=== PATIENT | male | born 1960 | race Caucasian/White ===

== ENCOUNTER 2017-11-18 16:17 | Inpatient (IN) | payer OTHER ==
[~2017-11-18] VITALS: Ht 185.4 cm; Wt 113.4 kg
[2017-11-18] MEDS ORDERED: ACETAMINOPHEN 325 MG TABLET PO PRN (19:00)
[2017-11-18] MEDS ORDERED: ONDANSETRON ODT 4 MG TAB.RAPDIS SL PRN (19:00)
[2017-11-18] MEDS ORDERED: THIAMINE HCL 200 MG/2 ML VIAL IM ONE (19:00)
[2017-11-18] MEDS ORDERED: LORAZEPAM 2 MG/1 ML VIAL IM PRN (19:00)
[2017-11-18] MEDS ORDERED: MAG HYDROX/AL HYDROX/SIMETH 30 ML LIQUID UDC PO PRN (19:00)
[2017-11-18] MEDS ORDERED: ONDANSETRON 4 MG/2 ML VIAL IM PRN (19:00)
[2017-11-18] MEDS ORDERED: CLONIDINE HCL 0.1 MG TABLET PO PRN (19:00)
[2017-11-18] MEDS ORDERED: LOPERAMIDE HCL 2 MG CAPSULE PO PRN ×2 (19:00)
[2017-11-18] MEDS ORDERED: diphenhydrAMINE 50 MG CAPSULE PO PRN (19:00)
[2017-11-18] MEDS ORDERED: MAGNESIUM HYDROXIDE 30 ML LIQUID UDC PO PRN (19:00)
[2017-11-18] MEDS ORDERED: MIRALAX 17 GM POWD.PACK PO PRN (19:00)
[2017-11-18] MEDS ORDERED: LORAZEPAM 1 MG TABLET PO PRN ×2 (19:00)
--- NOTE | 2017-11-18 19:50 | NUR ---
Pre admission Note Px is a 56 y/o male, seen at intake, A&Ox4, no SOB with moderate to severe anxiety noted at this time. Discussed with patient the admission policies of the unit. Patient is coherent and able to respond to questions appropriately. Px is ambulatory with steady gait. Vital signs taken and as follows: BP: 195/125 on Left arm and 168/106 on Right arm, P: 107, R: 19, O2: 95%, T: 97.5, PA: 0. Px verbalized understanding of instructions and teachings regarding disposal of narcotic and other controlled home medications, unit protocols such as taking of vital signs Q4H and handling and disposal of contraband. We'll continue with admission upon px's arrival on the unit.
[2017-11-18 20:12] LABS: *AMPHETAMINE, URINE NEGATIVE (NEGATIVE); *BARBITURATE, URINE NEGATIVE (NEGATIVE); *CANNABINOID, URINE NEGATIVE (NEGATIVE); *COCCAINE, URINE NEGATIVE (NEGATIVE); *OPIATE, URINE NEGATIVE (NEGATIVE); *PHENCYCLIDINE SCREEN,URINE NEGATIVE (NEGATIVE)
[2017-11-18] MEDS ORDERED: METO25TA6 PO (20:20)
[2017-11-18] MEDS ORDERED: AMLO10TA4 PO (20:20)
[2017-11-18] MEDS ORDERED: MAGN400T6 PO (20:20)
--- NOTE | 2017-11-18 20:30 | NUR ---
Admission Note Maryjo is a 56 y/o male admitted on 11/18/17 for ETOH dependence, arrived on the unit at 2011. Px able to provide UDS during intake. Skin and body check completed. Px is full code, NKA, regular diet and on fall/seizure precautions. Px reported seizure history but can't recall when. Reports PMHx of anxiety, depression, HTN, A fib., arthritis, fractures, left eye cataract and surgeries on throat and right elbow. Maryjo refuses flu/pneumonia vaccine. Vitals upon assessment are BP: 173/111, P: 101, R: 18, O2: 95%, T: 97.9, PA: 0/10. Weight 250, height 61. Maryjo is currently intoxicated and reports his last intake was vodka just prior to arrival. Maryjo reports he does not have a PCP, smokes approximately to 1 pack cigarettes daily, denies being hospitalized or in senior care within past 30 days. Px brought home medication to reconcile. Maryjo is able to understand and respond to all questions pertaining to his hospitalization. Substance Abuse History is as follows: 1. Vodka, 1 Liter a day for 2 years, last intake 11/18/2017 1 pint. Px has been drinking since grade school Pxs longest sober period was 3 days last 2 weeks ago. Px reports this is his first time in treatment/detox. Mother has PMHx of cancer. Upon assessment, maryjo is A&Ox4 and presents with high anxiety, flushed skin, stomach cramps, and mild nausea. Respirations are even and unlabored. Denies SOB or chest pain. Bowel sounds active x 4, abdomen soft. PERRLA. Skin intact, no open wounds noted. Px denies SI/HI at this time. Px has no history of suicidal thoughts. Educational information provided and left at bedside. Px oriented to room and encouraged to notify staff with any concerns. Safety measures in place. Call light within reach, side rails up x 2, bed locked and in low position. We'll continue to monitor.
[2017-11-18] MEDS ORDERED: NICOTINE POLACRILEX 4 MG GUM-PK OF TEN BC PRN (20:45)
[2017-11-18] MEDS ORDERED: ACET500C4 PO (20:48)
[2017-11-18] MEDS ORDERED: ACET-1951 PO (20:52)
--- NOTE | 2017-11-18 20:58 | NUR ---
1x dose meds Vit B1 100mg given IM, Apresoline 50 mg/tab, 1 tab given PO and Ativan 1mg/tab, 2 tabs given PO as 1x dose. We'll continue to monitor.
[2017-11-18] MEDS: METOPROLOL TARTRATE 25 MG TABLET PO SCH (20:59)
[2017-11-18] MEDS ORDERED: LORAZEPAM 1 MG TABLET PO SCH (21:00)
[2017-11-18] MEDS ORDERED: hydrALAZINE HCL 50 MG TABLET PO ONE (21:00)
[2017-11-18] MEDS ORDERED: THIAMINE HCL 200 MG/2 ML VIAL ONE (21:06)
[2017-11-18] MEDS ORDERED: LORAZEPAM 1 MG TABLET ONE ×2 (21:06→23:39)
[2017-11-18] MEDS ORDERED: METOPROLOL TARTRATE 25 MG TABLET ONE (21:06)
[2017-11-18] MEDS ORDERED: hydrALAZINE HCL 50 MG TABLET ONE (21:06)
[2017-11-18] MEDS: DICYCLOMINE HCL 20 MG TABLET PO PRN (21:14)
[2017-11-18] MEDS ORDERED: ONDANSETRON ODT 4 MG TAB.RAPDIS ONE (21:23)
[2017-11-18] MEDS ORDERED: DICYCLOMINE HCL 20 MG TABLET ONE (21:30)
--- NOTE | 2017-11-18 23:23 | NUR ---
PRN meds Px complained of nausea, stomach cramps, and severe anxiety. At 2106, Zofran 4 mg/tab, 1 tab given SL. At 2113, Bentyl 20 mg/tab, 1 tab given PO. At 2322, Ativan 1 mg/tab, 2 tabs given PO for CIWA 13 and Motrin 400 mg/tab, 1 tab given PO as PRN meds. We'll continue to monitor.
[2017-11-18] MEDS: IBUPROFEN 400 MG TABLET PO PRN (23:24)
[2017-11-18] MEDS ORDERED: IBUPROFEN 400 MG TABLET ONE (23:38)
[2017-11-19] VITALS: BP 150/83
[2017-11-19 02:13] LABS: ETHANOL < 3 MG/DL (0-0)
[2017-11-19 02:16] LABS: ALANINE AMINOTRANSFERASE 64 U/L (16-63); ALKALINE PHOSPHATASE 67 U/L (50-136); AMYLASE 29 U/L (25-115); ASPARTATE AMINOTRANSFERASE 52 U/L (15-37); BILIRUBIN,TOTAL 1.1 mg/dL (0.2-1.0); CARBON DIOXIDE 24 mmol/L (21-32); CHLORIDE 102 mmol/L (98-107); CREATININE 1.4 mg/dL (0.6-1.3); GLUCOSE 101 mg/dL (74-106); MAGNESIUM 1.9 mg/dL (1.8-2.4); TOTAL PROTEIN, SERUM 7.9 g/dL (6.4-8.2); UREA NITROGEN, BLOOD 26 mg/dL (7-18)
[2017-11-19 02:58] LABS: BASOPHILS # (AUTO) 0.1 K/uL (0.0-8.0); BASOPHILS % (AUTO) 1.1 % (0.0-2.0); EOSINOPHILS # (AUTO) 0.2 K/uL (0.0-0.7); EOSINOPHILS % (AUTO) 1.8 % (0.0-7.0); HEMATOCRIT 51.6 % (36.7-47.1); HEMOGLOBIN 17.7 g/dL (12.5-16.3); LYMPHOCYTES # (AUTO) 2.3 K/uL (20.0-40.0); LYMPHOCYTES % (AUTO) 24.7 % (20.5-51.5); MEAN CORPUSCULAR HEMOGLOBIN 32.1 uug (23.8-33.4); MEAN CORPUSCULAR HGB CONC 34 g/dL (32.5-36.3); MEAN CORPUSCULAR VOLUME 93.6 fL (73.0-96.2); MONOCYTES # (AUTO) 1.2 K/uL (2.0-10.0); MONOCYTES % (AUTO) 12.8 % (0.0-11.0); NEUTROPHILS # (AUTO) 5.7 K/uL (1.8-8.9); NEUTROPHILS % (AUTO) 59.6 % (38.5-71.5); PLATELET COUNT (AUTO) 177 K/uL (152-348); RED BLOOD CELL COUNT(AUTO) 5.51 MIL/uL (4.06-5.63); WHITE BLOOD COUNT (AUTO) 9.5 K/uL (3.6-10.2)
[2017-11-19 04:00] VITALS: BP 148/80
--- NOTE | 2017-11-19 04:00 | NUR ---
CIWA deferred CIWA deferred due to px is asleep, to assess if the px awake per doctor's order. We'll continue to monitor.
--- NOTE | 2017-11-19 07:14 | NUR ---
End of Shift Note 56 y/o male admitted on 11/18/17 for ETOH dependence. Px is full code, NKA, regular diet and on fall/seizure precautions. Px reported seizure history but cant recall when. Reports PMHx of anxiety, depression, HTN, A fib., arthritis, fractures, left eye cataract and surgeries on throat and right elbow. During the shift, px is A&Ox4 and presents with anxiety, flushed skin, stomach cramps, and mild nausea. Respirations are even and unlabored. At 2106, Zofran 4 mg/tab, 1 tab given SL. At 2113, Bentyl 20 mg/tab, 1 tab given PO. At 2322, Ativan 1 mg/tab, 2 tabs given PO for CIWA 13 and Motrin 400 mg/tab, 1 tab given PO as PRN meds. Oral intake of 600 ml, voided 2x, No BM. Slept for 4 hours. Safety measures in place. Call light within reach, side rails up x 2, bed locked and in low position. We'll continue to monitor.
--- NOTE | 2017-11-19 07:50 | NUR ---
START OF SHIFT NOTE Received report from night nurse, 57 year old male admitted for ETOH dependence. Patient to start on 5 days Ativan taper. Per endorsement pt was given x1 dose of Ativan, PRN Ativan , Motrin effective per night nurse, last CIWA score was 9, slept for 4 hours. Patient received in bed awake, alert and oriented x4, educated regarding plan of care for the day and medication regimen. Safety measures in place. Will cont to monitor.
[2017-11-19 08:00] VITALS: BP 176/103
[2017-11-19] MEDS: THIAMINE HCL 100 MG TABLET PO SCH (08:34)
[2017-11-19] MEDS: LORAZEPAM 1 MG TABLET PO SCH ×4 (08:34→21:58)
[2017-11-19] MEDS: MULTIVITAMINS,THERAPEUTIC TABLET PO SCH (08:34)
[2017-11-19] MEDS: FOLIC ACID 1 MG TABLET PO SCH (08:34)
[2017-11-19] MEDS: AMLODIPINE 10 MG TABLET PO SCH (08:35)
[2017-11-19] MEDS: METOPROLOL TARTRATE 25 MG TABLET PO SCH (08:35)
[2017-11-19] MEDS: IBUPROFEN 400 MG TABLET PO PRN (08:40)
[2017-11-19] MEDS: DICYCLOMINE HCL 20 MG TABLET PO PRN (08:40)
--- NOTE | 2017-11-19 08:40 | NUR ---
PRN.0 0 PRN MOTRIN/BENTYL Patient c/o of stomach cramps, bilateral lower extremities pain 5/10. PRN Motrin 400mg PO, Bentyl 20mg PO as ordered. Will cont to monitor and reassess. Addendum: 11/19/17 at 1110 by ANASTACIO WILLIAMSON LVN PRN MOTRIN/BENTYL Patient c/o of stomach cramps, bilateral lower extremities pain 5/10. PRN Motrin 400mg PO, Bentyl 20mg PO as ordered. Will cont to monitor and reassess.
[2017-11-19] MEDS ORDERED: TUBERCULIN,PURIF.PROT.DERIV. 5 TU/0.1 ML TEST ID ONE (09:00)
--- NOTE | 2017-11-19 09:40 | NUR ---
MOTRIN/BENTYL REASSESSMENT Patient reported medications was effective pain lower to 1/10 and stomach cramps subside.
[2017-11-19] MEDS: hydrALAZINE HCL 50 MG TABLET PO PRN (09:42)
--- NOTE | 2017-11-19 09:42 | NUR ---
PRN HYDRALAZINE Blood pressure noted 155/87, HR-98. PRN Hydralazine 50mg PO given as ordered. Will cont to monitor and reassess.
--- NOTE | 2017-11-19 10:42 | NUR ---
HYDRALAZINE REASSESSMENT Blood pressure noted 145/78, HR-80, medication effective.
--- NOTE | 2017-11-19 11:20 | NUR ---
Patient accidently tripped, but did not hurt him self no injury noted skin intact. Asked patient if he fell pt stated he just tripped over. Patient denies any dizziness or headache. notified.
[2017-11-19] MEDS ORDERED: LORAZEPAM 1 MG TABLET PO ONE (11:45)
--- NOTE | 2017-11-19 11:52 | NUR ---
X1 DOSE OF ATIVAN Patient was seen by MD with new one time order of Ativan 2mg PO. Medication administered as ordered. Will cont to monitor.
[2017-11-19 12:00] VITALS: BP 146/87
[2017-11-19] MEDS: DICYCLOMINE HCL 20 MG TABLET PO SCH ×2 (14:00→21:58)
[2017-11-19 16:00] VITALS: BP 140/88
[2017-11-19] MEDS: CARVEDILOL 12.5 MG TABLET PO SCH (17:30)
--- NOTE | 2017-11-19 19:11 | NUR ---
END OF SHIFT NOTE Patient cont with Ativan taper tolerating well. Patient received x1 dose of Ativan, PRN Bentyl, Motrin, Hydralazine noted to be effective. Vital signs remained WNL. Encourage Po fluids as tolerated. Last CIWA score was 5 @1600. Skin intact warm and dry to touch. Encourage patient to attend groups and activities to learn new coping skills. All needs attended, Safety measures in place. Patient endorsed to night nurse in stable condition.
--- NOTE | 2017-11-19 19:30 | NUR ---
START OF SHIFT Pt is a 57 y/o male admitted for ETOH dependency.NKA,full code status and regular diet.Patient continues with Ativan taper and is tolerating well. Last CIWA score was 5. Pt received sleeping in room,breathing is even and non labored,all safety measures in place per hospital policy.Will continue to monitor.
[2017-11-19 20:00] VITALS: BP 113/71
[2017-11-19] MEDS: GABAPENTIN 300 MG CAPSULE PO SCH (21:58)
[2017-11-19] MEDS: QUETIAPINE FUMARATE 25 MG TABLET PO SCH (22:06)
[2017-11-19] MEDS ORDERED: QUETIAPINE FUMARATE 25 MG TABLET ONE (22:20)
[2017-11-19 22:30] LABS: THYROID STIMULATING HORMONE 2.133 mIU/mL (0.358-3.740)
[2017-11-20] VITALS (7 sets, daily range): BP systolic 104–163; BP diastolic 69–103
--- NOTE | 2017-11-20 | NUR ---
CIWA DEFERRED DUE TO SLEEP.PT IS IN DEEP SLEEP.V/S ARE STABLE.BREATHING IS EVEN AND NON LABORED.WILL CONTINUE TO MONITOR.
[2017-11-20] MEDS: hydrALAZINE HCL 50 MG TABLET PO PRN (06:03)
--- NOTE | 2017-11-20 06:05 | NUR ---
PRN HYDRALAZINE GIVEN ORDERED OR B/P 0F 150/100.WILL MONITOR FOR EFFECTIVENESS.
--- NOTE | 2017-11-20 07:00 | NUR ---
B/P=140/74.HR=88.
--- NOTE | 2017-11-20 07:14 | NUR ---
END OF SHIFT Pt is a 57 y/o male admitted for ETOH dependency.NKA,full code status and regular diet.Pt appears confused at times, stated "I have been talking to myself",also stated that some has been sitting in his room,appears to be having some visual hallucinations;woke up this morning asking for dinner.Pt oriented to reality.PRN Hydralizine given for elevated B/P with good effect.Pt slept 10 hrs,fluid intake was 355 mls,voided x 3.PO fliud intake encouraged. Patient continues with Ativan taper and is tolerating well. Last CIWA score was 5. Pt was received sleeping in room and slept most of night ,breathing is even and non labored; all safety measures in place per hospital policy.Will continue to monitor.
--- NOTE | 2017-11-20 07:30 | NUR ---
Pt was placed on 1:1 for visual and auditory hallucinations
--- NOTE | 2017-11-20 07:30 | NUR ---
start of shift note: pt is in bed, room is very disorganized, pt is disoriented and rambling. pt is admitted to [facility] for ETOH withdrawal/dependence. will place a call to MD regarding Pt's status for any further orders. will monitor pt for any A/R to medications.
[2017-11-20] MEDS: CARVEDILOL 12.5 MG TABLET PO SCH ×2 (07:34→17:43)
[2017-11-20] MEDS: FOLIC ACID 1 MG TABLET PO SCH (08:17)
[2017-11-20] MEDS: THIAMINE HCL 100 MG TABLET PO SCH (08:17)
[2017-11-20] MEDS: GABAPENTIN 300 MG CAPSULE PO SCH ×2 (08:17→20:59)
[2017-11-20] MEDS: FAMOTIDINE 20 MG TABLET PO SCH (08:17)
[2017-11-20] MEDS: MULTIVITAMINS,THERAPEUTIC TABLET PO SCH (08:17)
[2017-11-20] MEDS: DICYCLOMINE HCL 20 MG TABLET PO SCH ×3 (08:18→20:59)
[2017-11-20] MEDS: AMLODIPINE 10 MG TABLET PO SCH (08:18)
[2017-11-20] MEDS: LORAZEPAM 1 MG TABLET PO SCH ×3 (08:18→21:00)
[2017-11-20] MEDS: QUETIAPINE FUMARATE 25 MG TABLET PO SCH ×2 (08:18→17:00)
[2017-11-20 10:16] LABS: BILIRUBIN,DIRECT 0.1 mg/dL (0.0-0.2); BILIRUBIN,TOTAL 0.5 mg/dL (0.2-1.0); CREATININE 1.1 mg/dL (0.6-1.3); MAGNESIUM 2.1 mg/dL (1.8-2.4); POTASSIUM 4.5 mmol/L (3.5-5.1); TOTAL PROTEIN, SERUM 7.1 g/dL (6.4-8.2)
[2017-11-20] MEDS ORDERED: LORAZEPAM 1 MG TABLET PO PRN ×2 (18:00)
--- NOTE | 2017-11-20 18:20 | NUR ---
prn ADMINISTRATION: ativan 1 mg was administered for pt's ciwa of 10. pt is very disoriented un aware of surroundings, overnight caregiver nurse to re-assess
--- NOTE | 2017-11-20 18:52 | NUR ---
end of shift note: [facility]. pt is on a 1:1 for disorientation and unsteady gait, pt's last ciwa 10. pt received 1 mg at 1820. pt tolerating taper medications well, pt's b/p is stabilized. pt is in bed sleeping at this time. pt tolerated PO intake well. will endorse pt to night shift supervisor nurse.
--- NOTE | 2017-11-20 19:30 | NUR ---
START OF SHIFT Pt is a 57 y/o male admitted for ETOH dependency.NKA,full code status and regular diet.Patient continues with Ativan taper and is tolerating well. Last CIWA score was 10.Pt was given Ativan 1 mg PO. Pt received sleeping in room,unable to assess for CIWA at this time due to Pt being asleep; breathing is even and non labored,all safety measures in place per hospital policy; 1:1 staff is at bed side.Pt continues to remain on close observation for safety.Will continue to monitor.
[2017-11-20] MEDS: CARVEDILOL 25 MG TABLET PO SCH (20:58)
[2017-11-21] VITALS: BP 113/62
--- NOTE | 2017-11-21 | NUR ---
CIWA DEFERRED/O2 ADMINISTRATION PT IS IN DEEP SLEEP,CIWA DEFERRED DUE TO BEING SLEEP.O2 SAT IS UNSTABLE AND KEEPS FLUCTUATING FROM 88% TO 93%.MD NOTIFIED.PT PLACED ON 2-3 LITRES OF OXYGEN VIA NASAL CANULA TO MAINTAIN SATURATION GREATER THAN 94%.WILL CONTINUE TO MONITOR.
[2017-11-21 04:00] VITALS: BP 126/75
--- NOTE | 2017-11-21 04:00 | NUR ---
CIWA DEFERRED/O2 SAT. PT IS IN DEEP SLEEP,CIWA DEFERRED DUE TO BEING ASLEEP.O2 SATURATING at 95%.PT CONTINUES ON 2-3 LITERS OF OXYGEN VIA NASAL CANULA TO MAINTAIN SATURATION GREATER THAN 94%.BREATHING IS EVEN AND NON LABORED,SITTER AT BEDSIDE.WILL CONTINUE TO MONITOR FOR SAFETY.
--- NOTE | 2017-11-21 06:41 | NUR ---
END OF SHIFT Pt is a 57 y/o male admitted for ETOH dependency.NKA,full code status and regular diet.Patient continues with Ativan taper and is tolerating well. Last CIWA score was 9, due to pt being confused.Pt continues to be on close observation for safety.Pt is med compliant.No PRN meds given; pt slept 10- hrs,fluid intake was 991 mls,voided x 0.Pt continues to be on 2-3 litres of oxygen via nasal canula and is tolerating well;breathing is even and non labored,all safety measures in place per hospital policy; 1:1 staff is at bed side.Pt continues to remain on close observation for safety.Will continue to monitor.
--- NOTE | 2017-11-21 07:35 | NUR ---
START OF SHIFT NOTE Received report from night nurse, 57 year old male admitted for ETOH dependence. Patient cont start on 5 days Ativan taper. Patient currently on 1:1 for safety. Per endorsement pt did not receive any PRN, last CIWA score was 9, slept for 10 hours. Patient received in bed awake, alert and oriented x4, educated regarding plan of care for the day and medication regimen. Safety measures in place. Will cont to monitor.
[2017-11-21 08:00] VITALS: BP 136/84
[2017-11-21 08:06] LABS: HEPATITIS B SURFACE AG Negative (Negative)
[2017-11-21] MEDS: THIAMINE HCL 100 MG TABLET PO SCH (08:27)
[2017-11-21] MEDS: GABAPENTIN 300 MG CAPSULE PO SCH ×3 (08:27→20:43)
[2017-11-21] MEDS: MULTIVITAMINS,THERAPEUTIC TABLET PO SCH (08:27)
[2017-11-21] MEDS: LOSARTAN POTASSIUM 50 MG TABLET PO SCH (08:28)
[2017-11-21] MEDS: FOLIC ACID 1 MG TABLET PO SCH (08:28)
[2017-11-21] MEDS: DICYCLOMINE HCL 20 MG TABLET PO SCH ×3 (08:28→20:43)
[2017-11-21] MEDS: FAMOTIDINE 20 MG TABLET PO SCH (08:28)
[2017-11-21] MEDS: CARVEDILOL 25 MG TABLET PO SCH ×2 (08:28→20:43)
[2017-11-21] MEDS: AMLODIPINE 10 MG TABLET PO SCH (08:29)
[2017-11-21] MEDS: QUETIAPINE FUMARATE 25 MG TABLET PO SCH ×3 (08:29→16:31)
[2017-11-21] MEDS ORDERED: LORAZEPAM 1 MG TABLET PO SCH ×2 (09:00→21:00)
--- NOTE | 2017-11-21 09:49 | NUR ---
Therapist prompted client about group times. Client stated he wants to rest today.
[2017-11-21 12:00] VITALS: BP 132/79
[2017-11-21] MEDS: LORAZEPAM 1 MG TABLET PO SCH ×2 (12:11→16:31)
[2017-11-21 16:00] VITALS: BP 125/65
--- NOTE | 2017-11-21 19:06 | NUR ---
END OF SHIFT NOTE Patient cont with 5 days Ativan taper tolerating well. During shift patient did not receive any PRN. Patient cont on 1:1 for safety. Vital signs remained WNL. Encourage Po fluids as tolerated. Last CIWA score was 5 @1600. Skin intact warm and dry to touch. Safety measures in place. Patient endorsed to night nurse in stable condition.
--- NOTE | 2017-11-21 19:11 | NUR ---
Start of shift note Received report from day shift nurse. Pt is a 57 yo male, A+Ox4, presenting to [facility] for ETOH dependence. Pt has NKA, is on Full code status, and on Regular diet. Pt is on Fall and Seizure precautions. Pt is on 1:1 sitter for safety. Pt has HX of Anxiety, Depression, HTN, Afib, Arthritis, Left eye cataract, back injury, Right elbow FX, and Syncope. Pt is on 5 day Ativan taper, tolerated well. No s/s of distress noted at this time. Respirations even and unlabored. Will continue to monitor.
[2017-11-21 20:10] VITALS: BP 140/85
[2017-11-22 00:21] VITALS: BP 104/67
[2017-11-22 04:34] VITALS: BP 110/72
--- NOTE | 2017-11-22 06:58 | NUR ---
End of shift note Pt is a 57 yo male, A+Ox4, presenting to [facility] for ETOH dependence. Pt has NKA, is on Full code status, and on Regular diet. Pt is on Fall and Seizure precautions. Pt is on 1:1 sitter for safety. Pt has HX of Anxiety, Depression, HTN, Afib, Arthritis, Left eye cataract, back injury, Right elbow FX, and Syncope. Pt is on 5 day Ativan taper, tolerated well. No PRN's given throughout shift. Pt slept for a total of 10 HRS. Last CIWA: 3 @0400. No s/s of distress noted at this time. Respirations even and unlabored. Will endorse to day shift nurse.
--- NOTE | 2017-11-22 07:24 | NUR ---
START OF SHIFT NOTE Received report from night nurse, 57 year old male admitted for ETOH dependence. Patient cont on 5 days Ativan taper tolerating well. Patient currently on 1:1 for safety. Per endorsement pt did not receive any PRN, last CIWA score was 3, slept for 10 hours. Patient received in bed awake, alert and oriented x4, educated regarding plan of care for the day and medication regimen. Safety measures in place. Will cont to monitor.
[2017-11-22 08:00] VITALS: BP 152/87
[2017-11-22] MEDS: LOSARTAN POTASSIUM 50 MG TABLET PO SCH (08:17)
[2017-11-22] MEDS: MULTIVITAMINS,THERAPEUTIC TABLET PO SCH (08:17)
[2017-11-22] MEDS: FAMOTIDINE 20 MG TABLET PO SCH (08:17)
[2017-11-22] MEDS: GABAPENTIN 300 MG CAPSULE PO SCH ×2 (08:17→14:02)
[2017-11-22] MEDS: AMLODIPINE 10 MG TABLET PO SCH (08:18)
[2017-11-22] MEDS: THIAMINE HCL 100 MG TABLET PO SCH (08:18)
[2017-11-22] MEDS: DICYCLOMINE HCL 20 MG TABLET PO SCH ×3 (08:18→21:47)
[2017-11-22] MEDS: QUETIAPINE FUMARATE 25 MG TABLET PO SCH ×3 (08:18→16:50)
[2017-11-22] MEDS: FOLIC ACID 1 MG TABLET PO SCH (08:18)
[2017-11-22] MEDS: CARVEDILOL 25 MG TABLET PO SCH ×2 (08:19→21:47)
[2017-11-22] MEDS: IBUPROFEN 400 MG TABLET PO PRN (08:23)
--- NOTE | 2017-11-22 08:23 | NUR ---
PRN MOTRIN Patient c/o of lower extremities pain 5/10. PRN Motrin 400mg PO given as ordered. Will cont to monitor and reassess.
[2017-11-22] MEDS ORDERED: LORAZEPAM 1 MG TABLET PO SCH ×3 (09:00→21:00)
--- NOTE | 2017-11-22 09:23 | NUR ---
MOTRIN REASSESSMENT Patient reported medication was effective pain lower to 2/10.
[2017-11-22 12:00] VITALS: BP 133/77
[2017-11-22] MEDS ORDERED: KETOROLAC TROMETHAMINE 30 MG INJ IM PRN (12:30)
--- NOTE | 2017-11-22 13:24 | NUR ---
PRN TYLENOL Patient c/o of lower extremities pain 5/10. PRN Tylenol 650mg PO given as ordered. Will cont to monitor and reassess.
--- NOTE | 2017-11-22 14:24 | NUR ---
TYLENOL REASSESSMENT Patient reported medication was effective pain lower to 1/10.
[2017-11-22 16:00] VITALS: BP 121/67
--- NOTE | 2017-11-22 19:07 | NUR ---
END OF SHIFT NOTE Patient cont with 5 days Ativan taper tolerating well. During shift patient received PRN Tylenol/Motrin noted to be effective. Patient cont on 1:1 for safety. Vital signs remained WNL. Encourage Po fluids as tolerated. Last CIWA score was 3 @1600. Skin intact warm and dry to touch. Safety measures in place. Patient endorsed to night nurse in stable condition.
--- NOTE | 2017-11-22 19:11 | NUR ---
Start of shift note Received report from day shift nurse. Pt is a 57 yo male, A+Ox4, presenting to [facility] for ETOH dependence. Pt has NKA, is on Full code status, and on Regular diet. Pt is on Fall and Seizure precautions. Pt is on 1:1 sitter for safety. Pt has HX of Anxiety, Depression, HTN, Afib, Arthritis, Left eye cataract, back injury, Right elbow FX, and Syncope. Pt is on 5 day Ativan taper, tolerated well. No s/s of distress noted at this time. Respirations even and unlabored. Will continue to monitor.
[2017-11-22 20:15] VITALS: BP 142/88
[2017-11-22] MEDS ORDERED: GABAPENTIN 300 MG CAPSULE PO SCH (21:00)
[2017-11-23 00:19] VITALS: BP 138/87
[2017-11-23 04:18] VITALS: BP 134/82
--- NOTE | 2017-11-23 07:00 | NUR ---
End of shift note Pt is a 57 yo male, A+Ox4, presenting to [facility] for ETOH dependence. Pt has NKA, is on Full code status, and on Regular diet. Pt is on Fall and Seizure precautions. Pt is on 1:1 sitter for safety. Pt has HX of Anxiety, Depression, HTN, Afib, Arthritis, Left eye cataract, back injury, Right elbow FX, and Syncope. Pt is on 5 day Ativan taper, tolerated well. No PRN's given throughout shift. Pt slept for a total of 10 HRS. Last CIWA: 4 @0400. No s/s of distress noted at this time. Respirations even and unlabored. Will endorse to day shift nurse.
[2017-11-23 08:00] VITALS: BP 143/86
[2017-11-23] MEDS: QUETIAPINE FUMARATE 25 MG TABLET PO SCH ×3 (09:00→17:34)
[2017-11-23] MEDS: MULTIVITAMINS,THERAPEUTIC TABLET PO SCH (09:01)
[2017-11-23] MEDS: AMLODIPINE 10 MG TABLET PO SCH (09:01)
[2017-11-23] MEDS: DICYCLOMINE HCL 20 MG TABLET PO SCH ×3 (09:01→21:47)
[2017-11-23] MEDS: GABAPENTIN 300 MG CAPSULE PO SCH ×3 (09:02→21:47)
[2017-11-23] MEDS: LOSARTAN POTASSIUM 50 MG TABLET PO SCH ×2 (09:02→21:48)
[2017-11-23] MEDS: FOLIC ACID 1 MG TABLET PO SCH (09:02)
[2017-11-23] MEDS: THIAMINE HCL 100 MG TABLET PO SCH (09:02)
[2017-11-23] MEDS: FAMOTIDINE 20 MG TABLET PO SCH (09:02)
[2017-11-23] MEDS: CARVEDILOL 25 MG TABLET PO SCH ×2 (09:03→21:48)
[2017-11-23] MEDS: LORAZEPAM 1 MG TABLET PO SCH ×2 (09:03→21:47)
--- NOTE | 2017-11-23 09:35 | NUR ---
START OF SHIFT Received report from night shift supervisor nurse. Patient is 57 year old male admitted for medically supervised withdrawal from alcohol. Patient is full code with NKA. Patient on ativan taper. On assessment this AM: CIWA: 7. Denies SOB, chest pain. Patients vitals signs: 143/86, HR 65, R 16, Temp 98, pain 0/10. Reports anxiety, headache, mild sweating and tremors. Med compliant with AM meds. No PRN given. Patient on safety atendant for unsteady gait. Patient was encouraged to attend group meetings today. Will continue to monitor patient.
[2017-11-23] MEDS ORDERED: BACLOFEN 20 MG TABLET PO PRN (11:00)
[2017-11-23 12:00] VITALS: BP 132/87
--- NOTE | 2017-11-23 13:32 | NUR ---
PRN TORADOL IM INJECTION Patient reports pain on R upper back, 10/10, aching pain. PRN toradol injection given. Will continue to monitor patient.
--- NOTE | 2017-11-23 14:02 | NUR ---
REASSESSMENT PRN TORADOL INJECTION Patient reports pain decreased to 6/10, pain med effective
[2017-11-23 16:00] VITALS: BP 147/85
--- NOTE | 2017-11-23 18:44 | NUR ---
END OF SHIFT Patient is 57 year old male admitted for medically supervised withdrawal from alcohol. Patient is full code with NKA. Patient on ativan taper. Most recent CIWA: 6. Patient on construction safety consultant for unsteady gait. Seen by PT for evaluation, pt. was provided with a cane. Compliant with routine meds during this shift. PRN toradol IM injection given for R upper back pain, 08/08, effective. Patient did not attend groups today. implement mechanichorse racing analyst will continue to monitor patient.
--- NOTE | 2017-11-23 19:01 | NUR ---
Patient denies any hallucinations during this shift. Will remain on 1:1 monitoring as ordered.
[2017-11-23 20:00] VITALS: BP 120/76
--- NOTE | 2017-11-23 21:40 | NUR ---
Px wakes up Px woke up, due meds given. BP= 137/88 and AZ= 68. We'll continue to monitor.
--- NOTE | 2017-11-23 21:42 | NUR ---
Start of Shift Note Received 57 y/o male admitted on 11/18/17 for ETOH dependence. Px is A&Ox4. Px is full code, NKA, regular diet and on fall/seizure precautions. Px reported seizure history but cant recall when. Reports PMHx of anxiety, depression, HTN, A fib. and arthritis, fractures, left eye cataract and surgeries on throat and right elbow. Px is on 1 to 1 for safety. During the rounds at 1999, px is asleep. Respirations are even and unlabored. Safety measures in place. Call light within reach, side rails up x 2, bed locked and in low position. We'll continue to monitor.
[2017-11-24] VITALS: BP 120/76
[2017-11-24 04:00] VITALS: BP 124/66
--- NOTE | 2017-11-24 04:00 | NUR ---
CIWA deferred CIWA deferred at 0000 and 0400 due to the px is asleep, to assess if the px is awake per doctor's order. We'll continue to monitor.
--- NOTE | 2017-11-24 07:22 | NUR ---
End of Shift Note 57 y/o male admitted on 11/18/17 for ETOH dependence. Px is A&Ox4. Px is full code, NKA, regular diet and on fall/seizure precautions. Px reported seizure history but cant recall when. Reports PMHx of anxiety, depression, HTN, A fib. and arthritis, fractures, left eye cataract and surgeries on throat and right elbow. Px is on 1 to 1 for safety. During the shift, no complaints made at this time. Oral intake of 700 ml, voided 1x, No BM. Slept for 8 hours. Respirations are even and unlabored. Safety measures in place. Call light within reach, side rails up x 2, bed locked and in low position. We'll continue to monitor.
--- NOTE | 2017-11-24 07:23 | NUR ---
Start of Shift Whey Department Operator received report on 57 year old male admitted to [facility] on 11/18/17 for ETOH detoxification. Pt endorses NKDA, full code and eats a regular diet. Pt endorses PMH of anxiety, depression, HTN, A-fib, arthritis, syncope and Hep C. Pt has been tolerating his Ativan taper, last CIWA 4 recorded on NOC. No PRN medication administered on NOC. Pt placed on 1:1 staffing for unsteady gait. Whey Department Operator encounters pt in his room resting. Pt is calm, cooperative and able to make needs known. A/O x4. Bed in low position, wheels locked and side rails up x2. Will continue to monitor, support and encourage according to plan of care.
[2017-11-24 08:45] VITALS: BP 158/101
[2017-11-24] MEDS ORDERED: LORAZEPAM 1 MG TABLET PO SCH (09:00)
[2017-11-24] MEDS: DICYCLOMINE HCL 20 MG TABLET PO SCH ×3 (09:32→20:55)
[2017-11-24] MEDS: CARVEDILOL 25 MG TABLET PO SCH ×2 (09:32→21:00)
[2017-11-24] MEDS: LOSARTAN POTASSIUM 50 MG TABLET PO SCH (09:33)
[2017-11-24] MEDS: FAMOTIDINE 20 MG TABLET PO SCH (09:33)
[2017-11-24] MEDS: GABAPENTIN 300 MG CAPSULE PO SCH ×3 (09:33→20:52)
[2017-11-24] MEDS: FOLIC ACID 1 MG TABLET PO SCH (09:33)
[2017-11-24] MEDS: AMLODIPINE 10 MG TABLET PO SCH (09:33)
[2017-11-24] MEDS: QUETIAPINE FUMARATE 25 MG TABLET PO SCH ×3 (09:34→17:07)
[2017-11-24] MEDS: THIAMINE HCL 100 MG TABLET PO SCH (09:34)
[2017-11-24] MEDS: MULTIVITAMINS,THERAPEUTIC TABLET PO SCH (09:34)
--- NOTE | 2017-11-24 11:45 | NUR ---
1:1 Staff DC Pt has been removed from 1:1 staffing per PT recommendations to have pt ambulate with a cane. Clerk Cashier witnessed pt walking the hallway with cane and had a steady gait. Clerk Cashier notified MD of PT evaluation and gives an order to discontinue 1:1 staffing based on that evaluation and writers' assessment. medical billing service made aware.
[2017-11-24 12:19] VITALS: BP 156/80
[2017-11-24] MEDS ORDERED: LIDOCAINE 5% PATCH TD SCH (13:00)
--- NOTE | 2017-11-24 13:47 | NUR ---
Therapist prompted client to come to group today, client ageed to come to group.
[2017-11-24] MEDS ORDERED: FAMO20TA8 PO (14:58)
[2017-11-24] MEDS ORDERED: AMLO10TA2 PO (14:58)
[2017-11-24] MEDS ORDERED: CARV25TA2 PO (14:58)
[2017-11-24] MEDS ORDERED: DIPH50CA37 PO (14:58)
[2017-11-24] MEDS ORDERED: METH-406 PO (14:58)
[2017-11-24] MEDS ORDERED: GABA-534 PO (14:58)
[2017-11-24] MEDS ORDERED: LOSA50TA3 PO (14:58)
[2017-11-24] MEDS ORDERED: IBUP-1953 PO (14:58)
[2017-11-24] MEDS ORDERED: LIDO30AD10 TD (14:58)
[2017-11-24] MEDS ORDERED: QUET25TA PO (14:58)
[2017-11-24] MEDS ORDERED: DICY20TA28 PO (14:58)
[2017-11-24 16:43] VITALS: BP 109/61
--- NOTE | 2017-11-24 19:05 | NUR ---
End of Shift Automotive Design Layout Drafter provided report on 57 year old male admitted to [facility] on 11/18/17 for ETOH detoxification. Pt endorses NKDA, full code and eats a regular diet. Pt endorses PMH of anxiety, depression, HTN, A-fib, arthritis, syncope and Hep C. Pt has been tolerating his Ativan taper, last CIWA 4 recorded at 1600. No PRN medication administered on this shift. Pt removed from 1:1 staffing d/t recommendations of PT, that pt walk with cane. Pt is able to ambulate with cane, with no distress noted. Pt is scheduled for discharge tomorrow at 0700. Pt is calm, cooperative and able to make needs known. A/O x4. Bed in low position, wheels locked and side rails up x2. Will continue to monitor, support and encourage according to plan of care.
--- NOTE | 2017-11-24 19:15 | NUR ---
Start of Shift Note: Patient is a 57 y.o male admitted on 11/18/17 for ETOH dependence. Patient reports PMHx of Anxiety, Depression, HTN, A-fib, Arthritis, Back injury, syncope, Left eye cataract, & Hep C. Patient is on a regular diet with no known food and drug allergies. Full Code status. Patient completed his Ativan taper and is scheduled to be discharge tomorrow. Last CIWA is 2. No PRN medications received during day shift. Patient is alert & oriented x4. No shortness of breath noted. Respiration even & unlabored. Abdomen soft & non-distended. No nausea/vomiting noted. Patient denies any pain/discomfort. Slight anxiety noted. Denies any hallucinations. Hand tremors felt but not seen. Safety precautions are in place. Bed locked in lowest position. Both side rails up. Call light within pts reach. Will continue to monitor patient.
[2017-11-24 20:00] VITALS: BP 98/47
[2017-11-24] MEDS ORDERED: LOSARTAN POTASSIUM 50 MG TABLET PO SCH (21:00)
[2017-11-25] VITALS: BP 106/60
--- NOTE | 2017-11-25 07:20 | NUR ---
End of Shift Note: Patient is in stable condition, Vitals WNL B/P 145/86, IL 72, RR 16, Temp 97.2 O2Sat 97%, Skin is intact, denies any suicidal or homicidal ideations. All discharge paper work signed and dated. Pt is in his room with no s/s of distress. Pt slept for a total of 9 hours. Fluid intake 855ml, Voided 3x with no bowel movement. Will endorse pt to day shift nurse.
--- NOTE | 2017-11-25 07:25 | NUR ---
discharge note: pt left the unit in stable condition no s/s of pain or discomfort, pt left with all personal belongings. pt teaching administered and pt verbalized understanding. [place] via [place] car to [facility].
[2017-11-25] MEDS ORDERED: LOSARTAN POTASSIUM 50 MG TABLET PO SCH (09:00)
== END 2017-11-25 07:25 | disposition other institution (70) | DRG 895 ==
LOC: SRC 18:52
PROVIDERS: ADMIT Internal Medicine; ATTEND Internal Medicine
PROC: HZ2ZZZZ Detoxification Services for Substance Abuse Treatment (ICD-10-PCS; principal; 2017-11-18)
PROC: HZ31ZZZ Individual Counseling for Substance Abuse Treatment, Behavioral (ICD-10-PCS; 2017-11-21)
DX: F10.232 Alcohol dependence with withdrawal with perceptual disturbance (principal); N17.9 Acute kidney failure, unspecified; D68.59 Other primary thrombophilia; Z86.74 Personal history of sudden cardiac arrest; I48.0 Paroxysmal atrial fibrillation; E86.9 Volume depletion, unspecified; B19.20 Unspecified viral hepatitis C without hepatic coma; K70.10 Alcoholic hepatitis without ascites; Y90.9 Presence of alcohol in blood, level not specified; G47.00 Insomnia, unspecified; Z91.89 Other specified personal risk factors, not elsewhere classified; Z81.1 Family history of alcohol abuse and dependence; F17.210 Nicotine dependence, cigarettes, uncomplicated; Z91.14 Patient's other noncompliance with medication regimen; F41.9 Anxiety disorder, unspecified; F39 Unspecified mood [affective] disorder; G89.29 Other chronic pain; M54.9 Dorsalgia, unspecified; I10 Essential (primary) hypertension
CPT/HCPCS: 36415; 80307; 83735; 84443; 85025; 86580; 86592; 86705; 86803; 87340; 87806; 93005; 97116; A4663; G0480; J1885; J3411; Q0162; Q0163